=== PATIENT | female | born 1945 | race Caucasian/White ===

== ENCOUNTER 2017-04-14 08:00 | Outpatient (CLI) | payer MEDICARE, OTHER ==
[2017-04-14] MEDS ORDERED: Gadobenate Dimeglumine 529 MG/1 ML (20ML VIAL) ONE (12:23)
== END 2017-04-14 08:01 | disposition home or self-care (01) ==
LOC: BICMRI 08:00
DX: R10.32 Left lower quadrant pain (principal); K57.30 Diverticulosis of large intestine without perforation or abscess without bleeding; M25.78 Osteophyte, vertebrae
CPT/HCPCS: 72197; A9579

== ENCOUNTER 2018-07-11 13:16 | Outpatient (CLI) | payer MEDICARE, OTHER ==
--- NOTE | 2018-07-11 13:42 | RAD ---
EXAM: XR Knee Lt 2 View PROVIDED CLINICAL HISTORY: Knee pain COMPARISON: None FINDINGS: Tricompartmental osteophyte formation with prominent medial femorotibial joint space loss. Knee joint capsular distention likely reflects effusion. No evidence for fracture or other acute osseous abnorm ality. IMPRESSION: Left knee degenerative change.
--- NOTE | 2018-07-11 13:59 | RAD ---
RIGHT KNEE 2 VIEWS: HISTORY: Knee pain, worse on the left side. FINDINGS AND IMPRESSION: Mild osteoarthrosis changes of the right knee. No fracture or dislocation or other acute process. POS: TPC
== END 2018-07-11 13:17 | disposition home or self-care (01) ==
LOC: BICRAD 13:16
PROVIDERS: ATTEND Anesthesiology
DX: M25.561 Pain in right knee (principal); M25.562 Pain in left knee; M17.0 Bilateral primary osteoarthritis of knee

== ENCOUNTER 2018-10-17 10:04 | Outpatient (CLI) | payer MEDICARE, OTHER ==
--- NOTE | 2018-10-17 12:03 | MRI ---
MR the lumbar spine without contrast INDICATION: Chronic low back pain with left lower extremity radiculopathy COMPARISON: MR the lumbar spine from prior radiology associates dated December 21, 2016 TECHNIQUE: Multiplanar multisequence MR images were obtained of lumbar spine without IV contrast. FINDINGS: Bone marrow: Bone marrow signal intensity appears within normal limits. Distal spinal cord and conus: Normal. The conus seen to terminate at L1. Visualized retroperitoneum and paraspinal soft tissues: There is postsurgical change of a left hemila minectomy at L5-S1 and bilateral laminectomies at L4-5. Grade 1 anterolisthesis of L3 on L4 and L4 on L5 is stable. Vertebral levels: L5-S1: There is a broad-based bulge with facet hypertrophy inducing mild right neural foraminal narro wing which is stable.. L4-5: There is a broad-based disc osteophyte complex and facet hypertrophy. There is a superimposed l eft paracentral, cephalad extending disc extrusion measuring 1.5 cm in its greatest craniocaudad dimension inducing moderate narrowing of the left subarticular lateral recess at L4 with potential fo r impingement of the traversing left L5 nerve root. The protrusion also induces moderate narrowing of the left L4-5 neural foramina with probable contact of the exiting left L4 nerve root. This is new from the prior exam. No right-sided neural foraminal narrowing is evident. No central canal narrowing is noted. L3-4: There is a broad-based disc osteophyte complex with facet hypertrophy inducing mild central can al narrowing with mild to moderate left neural foraminal narrowing L2-3: There is a broad-based disc bulge with a superimposed right paracentral protrusion causing mild central canal narrowing but no appreciable neural foraminal narrowing. L1-L2: There is a mild broad-based disc bulge with mild facet joint degenerative change but no apprec iable central canal or neural foraminal narrowing. T12-L1: No appreciable central canal or neuroforaminal narrowing. IMPRESSION: 1. New cephalad extending left-sided disc extrusion from L4-5 inducing moderate narrowing of the suba rticular left lateral recess with potential for impingement of the traversing left L5 nerve root. The protrusion does extend into the left L4-5 neural foramina with contact of the exiting left L4 ner ve root. 2. [id number] left neural foraminal narrowing at L3-4. 3. Mild right neural foraminal narrowing at L5-S1. 4. Mild central canal narrowing at L2-3
== END 2018-10-17 10:05 | disposition home or self-care (01) ==
LOC: SCSMRI 10:04
PROVIDERS: ATTEND Anesthesiology
DX: M51.16 Intervertebral disc disorders with radiculopathy, lumbar region (principal); M48.061 Spinal stenosis, lumbar region without neurogenic claudication; M48.07 Spinal stenosis, lumbosacral region
CPT/HCPCS: 72148

== ENCOUNTER 2018-11-21 06:38 | Day surgery (SDC) | payer MEDICARE, OTHER ==
[2018-11-20 16:05] VITALS: BMI 29.1
[2018-11-21] MEDS ORDERED: Fentanyl 100 MCG/2 ML VIAL ONE ×4 (06:55→10:27)
[2018-11-21] MEDS ORDERED: Famotidine/PF 20 mg/2ml Vial ONE (06:55)
[2018-11-21] MEDS ORDERED: ceFAZolin Sodium (SDC) 2 GM/100 ML BAG ONE ×2 (06:55→12:48)
[2018-11-21 07:22] LABS: Anion Gap 12 mmol/L (10-20); BUN (Urea Nitrogen) 22 mg/dL (9.8-20.1); Calc. Creatinine Clearance 78 mL/min (70-130); Calcium 10.1 mg/dL (7.8-10.44); Carbon Dioxide 28 mmol/L (23-31); Chloride 102 mmol/L (98-107); Estimated GFR-MDRD 55; Glucose 88 mg/dL (83-110); Potassium 4.1 mmol/L (3.5-5.1); Sodium 138 mmol/L (136-145)
[2018-11-21] MEDS ORDERED: Ondansetron PF 4 MG/2 ML Vial ONE (07:52)
[2018-11-21] MEDS ORDERED: Bupivacaine HCl 0.5%/Epinephrine 1:200,000/PF 30 ml Vial ONE (09:30)
--- NOTE | 2018-11-21 10:14 | OP ---
DATE OF PROCEDURE: 11/21/2018 MOTOR VEHICLE DISPATCHER: Yordan Chaidez PA-C INDICATION: Pain. DIAGNOSIS: Lumbar radiculopathy. PROCEDURES PERFORMED: Reoperation, left L4 decompression, left L4 facetectomy, left L4 diskectomy. ANESTHESIA: General. DESCRIPTION OF PROCEDURE: The patient was brought into the operating room and placed under general anesthesia. She was flipped from the supine to prone position on operating room table. A linear incision was planned over the L4-L5 segment. After prepping and draping and after an appropriate preoperative pause, the incision was created. The soft tissues were swept away from midline. We spent a significant amount of time dissecting through scar tissue and bone defect from her prior operation. The bony defect was extended laterally to encompass the medial half of facet joint at the L4-L5 segment. The exiting L4 and descending L5 nerve roots were identified. The superiorly migrated L4 disk fragment was noted within the lateral recesses up to the level of the exiting L4 pedicle. This was carefully decompressed. The wound was irrigated. Hemostasis was maintained throughout. The wound was then closed in anatomic layers and a pressure dressing was applied. There were no known procedural complications. Job ID: [id number]
== END 2018-11-21 13:25 | disposition home or self-care (01) ==
LOC: SDC 06:38
PROVIDERS: ATTEND Neurological Surgery
PROC: 0ST20ZZ Resection of Lumbar Vertebral Disc, Open Approach (ICD-10-PCS; principal; 2018-11-21)
DX: M54.16 Radiculopathy, lumbar region (principal); M51.26 Other intervertebral disc displacement, lumbar region; D64.9 Anemia, unspecified; Z88.5 Allergy status to narcotic agent
CPT/HCPCS: 36415; 76000; 80048; 93005; 93010; J0131; J0670; J0690; J2405; J3010; S0028

== ENCOUNTER 2019-12-19 10:30 | Inpatient (IN) | payer MEDICARE, OTHER ==
[2020-01-02 13:27] VITALS: BMI 29.2
[2020-01-07] MEDS ORDERED: Tranexamic Acid 1,000 MG/10 ML VIAL ONE (05:59)
[2020-01-07] MEDS ORDERED: Vancomycin 1.5 GRAM/300 ML BAG ONE (05:59)
[2020-01-07] MEDS ORDERED: Sodium Chloride 0.9% 100 ML ONE (06:00)
[2020-01-07] MEDS ORDERED: Fentanyl 100 MCG/2 ML VIAL ONE ×3 (06:33→10:29)
[2020-01-07] MEDS ORDERED: Midazolam HCl 2 mg/2 ml Vial ONE (06:33)
[2020-01-07] MEDS ORDERED: diphenhydrAMINE 25 MG CAP PO PRN (06:57)
[2020-01-07] MEDS ORDERED: Ondansetron PF 4 MG/2 ML Vial IVP PRN ×2 (06:57→07:45)
[2020-01-07] MEDS ORDERED: Acetaminophen 325 MG TAB PO PRN (06:57)
[2020-01-07] MEDS ORDERED: Zolpidem Tartrate 5 MG TAB PO PRN ×2 (06:57→07:45)
[2020-01-07] MEDS ORDERED: Promethazine HCl 25 MG/ML VIAL IM PRN ×2 (06:57→07:45)
[2020-01-07] MEDS ORDERED: Estrogens, Conjugated 30 GM TUBE VAG SCH ×2 (07:00→07:15)
[2020-01-07] MEDS ORDERED: ESTRADIOL ACETATE VG SCH (07:00)
[2020-01-07] MEDS ORDERED: ESTRADIOL ACETATE VAG SCH (07:30)
[2020-01-07] MEDS ORDERED: Fentanyl 100 MCG/2 ML VIAL IV PRN (07:35)
[2020-01-07] MEDS ORDERED: Ropivacaine HCl/PF 250 ML in Premix Bag 1 BAG NERVE BLCK SCH (07:45)
[2020-01-07] MEDS ORDERED: PROPOFOL 20 ML ONE (08:08)
[2020-01-07] MEDS ORDERED: Bupivacaine HCl 0.5%/Epinephrine 1:200,000/PF 30 ml Vial ONE ×2 (08:10→13:45)
[2020-01-07] MEDS ORDERED: GABAPENTIN 600 MG PO SCH (09:00)
[2020-01-07] MEDS ORDERED: Hydrochlorothiazide 25 MG TAB PO SCH (09:00)
[2020-01-07] MEDS ORDERED: Non-Formulary Item 1 EACH (Celecoxib [Celebrex] 200 MG Cap) PO SCH (09:00)
[2020-01-07] MEDS ORDERED: Amlodipine 5 MG TAB PO SCH (09:00)
[2020-01-07] MEDS ORDERED: Gabapentin 300 MG CAP PO SCH (09:00)
[2020-01-07] MEDS ORDERED: Finasteride 5 MG TAB PO SCH (09:00)
[2020-01-07] MEDS ORDERED: Non-Formulary Item 1 EACH (Omeprazole [Omeprazole] 20 MG Capsule.Dr) PO SCH (09:00)
[2020-01-07] MEDS ORDERED: QUINAPRIL HCL 40 MG PO SCH (09:00)
[2020-01-07] MEDS ORDERED: DOXYCYCLINE HYCLATE 20 MG PO SCH ×2 (09:00)
--- NOTE | 2020-01-07 09:24 | RAD ---
LEFT KNEE: Date: 01/07/2020 HISTORY: Postop follow-up. FINDINGS/IMPRESSION: Left knee prosthesis has been placed. Postoperative changes are noted. Components appear in adequate position and alignment. POS: AGW
[2020-01-07] MEDS: Sodium Chloride 0.9% 1,000 ML IV SCH ×2 (12:20→17:52)
[2020-01-07] MEDS: Amlodipine 5 MG TAB PO SCH (12:26)
[2020-01-07] MEDS: Ketorolac Tromethamine 30 MG/ML VIAL IVP SCH ×4 (12:29→21:42)
[2020-01-07] MEDS: Baclofen 10 MG TAB PO SCH ×3 (13:44→21:41)
[2020-01-07] MEDS: Aspirin 81 mg Enteric Coated Tablet PO SCH ×2 (13:44→21:38)
[2020-01-07] MEDS ORDERED: Rocuronium Bromide 10 MG/ML (10ML VIAL) ONE (13:45)
[2020-01-07] MEDS: CeleCOXIB 100 MG CAP PO SCH ×2 (13:45→21:40)
[2020-01-07] MEDS ORDERED: Ropivacaine 0.2% HCl/PF (40 MG/20 ML VIAL) ONE (13:45)
[2020-01-07] MEDS ORDERED: PROPOFOL 200 MG/20 ML VIAL ONE (13:45)
[2020-01-07] MEDS ORDERED: Ondansetron PF 4 MG/2 ML Vial ONE (13:45)
[2020-01-07] MEDS ORDERED: Dexamethasone 20 MG/5 ML VIAL ONE (13:45)
[2020-01-07] MEDS ORDERED: Ketorolac Tromethamine 30 MG/ML VIAL ONE (13:45)
[2020-01-07] MEDS: Ferrous Gluconate 324 MG TAB PO SCH ×2 (13:45→21:37)
[2020-01-07] MEDS: Multivitamin W/ Minerals 1 TAB PO SCH (13:46)
[2020-01-07] MEDS: Senokot S 8.6-50 MG TAB PO SCH ×2 (13:46→21:38)
[2020-01-07] MEDS: CEFAZOLIN 2 GM in Premix Bag 1 BAG IVPB SCH ×2 (14:02→21:46)
[2020-01-07] MEDS: Acetaminophen 500 MG TAB PO SCH ×3 (14:02→21:38)
[2020-01-07] MEDS: Lisinopril 20 MG TAB PO SCH (14:11)
[2020-01-07] MEDS: Hydrochlorothiazide 25 MG TAB PO SCH (14:16)
[2020-01-07] MEDS ORDERED: Nitrofurantoin Monohyd/M-Cryst 100 MG CAP PO SCH (21:00)
[2020-01-07] MEDS: Gabapentin 300 MG CAP PO SCH (21:37)
[2020-01-07] MEDS: Nitrofurantoin Monohyd/M-Cryst 100 MG CAP PO SCH (21:39)
[2020-01-08] MEDS: Ketorolac Tromethamine 30 MG/ML VIAL IVP SCH ×5 (00:45→22:16)
[2020-01-08] MEDS: Sodium Chloride 0.9% 1,000 ML IV SCH ×2 (04:05→17:35)
[2020-01-08 05:16] LABS: Hemoglobin 11.9 g/dL (12.0-16.0); Mean Corpuscular HGB CONC 32.7 g/dL (32.0-36.0); Mean Corpuscular Hemoglobin 31.2 pg (27.0-31.0); Mean Corpuscular Volume 95.3 fL (78.0-98.0); Mean Platelet Volume 8.9 fL (7.4-10.4); Platelet Count 251 thou/uL (130-400); RBC Distribution Width 12.3 % (11.5-14.5); White Blood Cell (WBC) Count 15.8 thou/uL (4.8-10.8)
--- NOTE | 2020-01-08 05:31 | OP ---
DATE OF PROCEDURE: 01/07/2020 PREOPERATIVE DIAGNOSIS: Degenerative joint disease, left knee. POSTOPERATIVE DIAGNOSIS: Degenerative joint disease, left knee. PROCEDURE PERFORMED: Left total knee arthroplasty using [place] Triathlon 5 femur, 5 tibia, 9 mm CS X3 polyethylene, and an A32 patella. PRINCIPAL TECHNICAL WRITER: Macy. The surgical physician assistant/co-surgeon was present through the entire procedure and was responsible for providing exposure, tissue retraction and any necessary limb or tissue manipulation required to obtain necessary reduction or hardware placement. The surgical physician assistant/co-surgeon also provided bleeding control, tissue closure, and suturing in conjunction with the primary surgeon. BLOOD LOSS: Minimal. SPECIMEN: None. DRAIN: None. COMPLICATION: None. TOURNIQUET TIME: 47 minutes. PROCEDURE IN DETAIL: After informed consent was obtained in the preoperative holding area, the patient was taken to the operative suite where general anesthesia was induced. Once adequate level of general anesthesia was obtained, the patient was positioned and a well-padded tourniquet was placed around the left proximal thigh. The left lower extremity was then prepped and draped in the usual sterile fashion. Prior to exsanguination, a time-out was called and all members of the surgical team agreed upon site, surgeon, and patient. The extremity was then exsanguinated and the tourniquet was raised. A midline longitudinal incision was then made directly over the patella extending 2 fingerbreadths above the superior pole of the patella and 2 fingerbreadths inferior to the inferior patellar pole of the patella. Deeper subcutaneous layers were dissected sharply and local bleeding was controlled with Bovie electrocautery. A quad tendon longitudinal split was then made sharply and a median parapatellar arthrotomy was carried out both sharp and with Bovie electrocautery, carried down to 1 fingerbreadth medial to the tibial tubercle. The knee was then placed into flexion and the patella was everted nicely, and a copious fat pad ectomy was performed allowing for greater exposure of the tibia. The computer-assisted distal femoral fiducial was then placed and pinned firmly, and the distal femoral cutting guide was pinned firmly into place. The oscillating saw was then used to remove the appropriate amount of bone. The 4-in-1 cutting block was then placed on the distal femur and the oscillating saw was used to remove the appropriate amount of bone off the anterior, posterior, and chamfer cuts. After completion of bone cuts, the anterior cruciate ligament was resected sharply and the posterior cruciate ligament retractor was placed and the tibia was subluxed for better exposure. Partial meniscectomies were carried out, and the tibial computer-assisted fiducial was pinned, and the cutting guide was placed. Oscillating saw was then used to remove the bone, with Hohmann retractors used to take care and protect the collateral ligaments. After the tibial resection was performed, a laminar trim master operator was placed in between the freshened bone cuts. The knee placed at 90 degrees and further bilateral meniscectomies were carried out, and the curved osteotome and curettage were used to remove any excess bone spurs in the posterior compartment. The trial femoral component, tibial baseplate were placed with the appropriate polyethylene trial insert with an appropriate polyethylene spacer and patellar button. The knee was taken through full range of motion with flexion and extension from 0 to 90 degrees and patellar broach squarely in the trochlea without any squinting or subluxation noted. The knee was also stable to varus and valgus stressing at 0, 15, 45, and 90 degrees of flexion. The drawer was negative. All trial components were then removed and the keel punch was used to provide the appropriate defect in the tibia with a mallet. The freshened bone cuts were copiously irrigated with pulsatile lavage of about 1.5 L to remove all excess debris. The freshened bone cuts were then dried with suction and lap sponge. The knee was placed in flexion and retractors were placed to provide access to all bone cuts. Tobramycin-impregnated methyl methacrylate cement was then placed on the freshened bone cuts and implants which were malleted firmly into place. Curettage and [place] elevators were used to remove any excess bone cement. The knee was placed into full extension and the patellar button was placed under compression, and the cement was allowed to cure. Once completed, the components were again taken through full range of motion and copious irrigation of the knee was carried out with another liter of normal saline. All components were inspected fully with full range of motion and varus and valgus stressing. There was no laxity noted and full extension was observed clinically. Primary closure was accomplished with #2 interrupted Vicryl stitch of the arthrotomy defect. This was oversewn with a #2 running Quill barbed stitch. The gravitational platelet system was then injected into the arthrotomy prior to closure. The subcutaneous layer was then closed with a running 0 barbed Monocryl stitch and skin closure accomplished with a running subcuticular 3-0 Monocryl barbed Quill stitch and augmented with cement on the skin. Tourniquet was lowered. Good spontaneous return of distal pulses was noted clinically and a sterile dressing was applied to the incision. The procedure was terminated without any complications. The patient was awakened in the operative suite and the was removed, and the patient was taken to the recovery room in stable condition. Job ID: [id number]
[2020-01-08] MEDS: Senokot S 8.6-50 MG TAB PO SCH ×2 (08:47→22:38)
[2020-01-08] MEDS: Acetaminophen 500 MG TAB PO SCH ×4 (08:48→22:16)
[2020-01-08] MEDS: Ferrous Gluconate 324 MG TAB PO SCH ×2 (08:48→22:15)
[2020-01-08] MEDS: Lisinopril 20 MG TAB PO SCH (08:49)
[2020-01-08] MEDS: Gabapentin 300 MG CAP PO SCH ×3 (08:49→22:15)
[2020-01-08] MEDS: Aspirin 81 mg Enteric Coated Tablet PO SCH ×2 (08:49→22:14)
[2020-01-08] MEDS: Multivitamin W/ Minerals 1 TAB PO SCH (08:49)
[2020-01-08] MEDS: Baclofen 10 MG TAB PO SCH ×3 (08:50→22:15)
[2020-01-08] MEDS: Hydrochlorothiazide 25 MG TAB PO SCH (08:50)
[2020-01-08] MEDS: Amlodipine 5 MG TAB PO SCH (08:50)
[2020-01-08] MEDS: CeleCOXIB 100 MG CAP PO SCH (09:03)
[2020-01-08] MEDS: Finasteride 5 MG TAB PO SCH (15:15)
[2020-01-08] MEDS: traMADol HCl 50 MG TAB PO PRN (22:14)
[2020-01-08] MEDS: Nitrofurantoin Monohyd/M-Cryst 100 MG CAP PO SCH (22:16)
[2020-01-09] MEDS: Ketorolac Tromethamine 30 MG/ML VIAL IVP SCH ×2 (04:03→09:02)
[2020-01-09] MEDS: traMADol HCl 50 MG TAB PO PRN ×3 (04:03→22:05)
[2020-01-09] MEDS: Sodium Chloride 0.9% 1,000 ML IV SCH ×3 (06:19→18:43)
[2020-01-09] MEDS: Hydrochlorothiazide 25 MG TAB PO SCH (09:03)
[2020-01-09] MEDS: Ferrous Gluconate 324 MG TAB PO SCH (09:03)
[2020-01-09] MEDS: Senokot S 8.6-50 MG TAB PO SCH (09:03)
[2020-01-09] MEDS: Amlodipine 5 MG TAB PO SCH (09:03)
[2020-01-09] MEDS: Multivitamin W/ Minerals 1 TAB PO SCH (09:04)
[2020-01-09] MEDS: Acetaminophen 500 MG TAB PO SCH ×4 (09:04→21:42)
[2020-01-09] MEDS: Baclofen 10 MG TAB PO SCH ×3 (09:04→22:02)
[2020-01-09] MEDS: Aspirin 81 mg Enteric Coated Tablet PO SCH ×2 (09:04→22:00)
[2020-01-09] MEDS: Gabapentin 300 MG CAP PO SCH ×3 (09:04→22:02)
[2020-01-09] MEDS: Lisinopril 20 MG TAB PO SCH (09:05)
[2020-01-09] MEDS: Finasteride 5 MG TAB PO SCH (13:42)
[2020-01-09] MEDS ORDERED: Acetaminophen 325 MG TAB PO PRN (17:00)
[2020-01-09] MEDS: Nitrofurantoin Monohyd/M-Cryst 100 MG CAP PO SCH (22:01)
[2020-01-09] MEDS: CeleCOXIB 100 MG CAP PO SCH (22:01)
[2020-01-10] MEDS: Ferrous Gluconate 324 MG TAB PO SCH ×3 (02:31→11:34)
[2020-01-10] MEDS: Senokot S 8.6-50 MG TAB PO SCH ×2 (02:32→11:35)
[2020-01-10] MEDS: traMADol HCl 50 MG TAB PO PRN ×2 (05:46→12:27)
[2020-01-10] MEDS: Sodium Chloride 0.9% 1,000 ML IV SCH (08:07)
[2020-01-10] MEDS: Hydrochlorothiazide 25 MG TAB PO SCH (09:05)
[2020-01-10] MEDS: Lisinopril 20 MG TAB PO SCH (09:05)
[2020-01-10] MEDS: Gabapentin 300 MG CAP PO SCH (09:07)
[2020-01-10] MEDS: CeleCOXIB 100 MG CAP PO SCH (09:08)
[2020-01-10] MEDS: Amlodipine 5 MG TAB PO SCH (09:08)
[2020-01-10] MEDS: Baclofen 10 MG TAB PO SCH (09:08)
[2020-01-10] MEDS: Aspirin 81 mg Enteric Coated Tablet PO SCH ×2 (09:09→11:34)
[2020-01-10] MEDS: Multivitamin W/ Minerals 1 TAB PO SCH (09:15)
[2020-01-10] MEDS: Acetaminophen 500 MG TAB PO SCH ×2 (09:21→13:25)
[2020-01-10] MEDS ORDERED: Acetaminophen 500 MG TAB PO SCH (09:30)
[2020-01-10 12:05] VITALS: BP 146/68; TEMP 98.1
[2020-01-10] MEDS: Finasteride 5 MG TAB PO SCH (13:21)
--- NOTE | 2020-01-13 13:53 | DIS ---
DATE OF ADMISSION: 01/07/2020 DATE OF DISCHARGE: 01/10/2020 PREOPERATIVE DIAGNOSIS: Degenerative joint disease, left knee. POSTOPERATIVE DIAGNOSIS: Degenerative joint disease, left knee. PROCEDURE PERFORMED: Left total knee arthroplasty using [place] Triathlon components. BRIEF HOSPITAL COURSE: This is a 74-year-old female, who was indicated for the above-mentioned procedure. She did well in the operative suite. Postoperatively, she was admitted to [facility] 3 postoperative floor. Here, she received postoperative antibiotics and analgesics were controlled by the anesthesiologist group. She worked with physical and occupational therapist. She did well postoperatively. On postop day #2, she felt well and was ambulating well. She was discharged home at that time. DISCHARGE DISPOSITION: Home. DISCHARGE CONDITION: Stable. DISCHARGE INSTRUCTIONS: The patient will follow up Dr. Angelo as scheduled. She will ambulate as tolerated. She will keep her surgical site clean, dry, and intact. DISCHARGE MEDICATIONS: See MAR. Job ID: [id number]
== END 2020-01-10 13:45 | disposition home or self-care (01) | DRG 470 ==
LOC: SDC 01-07 05:41 → SURG A 01-07 05:44 → EDSTATUS 01-07 10:30 → SJJU 01-07 10:46
PROVIDERS: ADMIT Orthopaedic Surgery; ATTEND Orthopaedic Surgery
PROC: 0SRD0J9 Replacement of Left Knee Joint with Synthetic Substitute, Cemented, Open Approach (ICD-10-PCS; principal; 2020-01-07)
DX: M17.12 Unilateral primary osteoarthritis, left knee (principal); I10 Essential (primary) hypertension; K21.9 Gastro-esophageal reflux disease without esophagitis; Z79.899 Other long term (current) drug therapy
CPT/HCPCS: 36415; 85027; C1713; C1776; J0690; J1100; J1885; J2250; J2405; J2704; J2795; J3010; J3370; J3490

== ENCOUNTER 2020-01-02 07:32 | Outpatient (CLI) | payer MEDICARE, OTHER ==
[2020-01-02 14:16] LABS: Anion Gap 14 mmol/L (10-20); BUN (Urea Nitrogen) 21 mg/dL (9.8-20.1); Calc. Creatinine Clearance 0 mL/min (70-130); Calcium 9.6 mg/dL (7.8-10.44); Carbon Dioxide 25 mmol/L (23-31); Chloride 103 mmol/L (98-107); Estimated GFR-MDRD 52; Glucose 96 mg/dL (83-110); Potassium 4.4 mmol/L (3.5-5.1); Sodium 138 mmol/L (136-145)
[2020-01-02 14:35] LABS: INR-International Normal Ratio 0.9; Prothrombin Time 12.9 sec (12.0-14.7)
[2020-01-02 14:45] LABS: Band 6 % (5-11); Eosinophils 3 % (0-10); Hemoglobin 13.9 g/dL (12.0-16.0); Lymphocytes 16 % (21-51); MDiff Complete? YES; Mean Corpuscular HGB CONC 32.3 g/dL (32.0-36.0); Mean Corpuscular Hemoglobin 31.2 pg (27.0-31.0); Mean Corpuscular Volume 96.7 fL (78.0-98.0); Mean Platelet Volume 10.3 fL (7.4-10.4); Monocytes 7 % (0-10); Neutrophil 66 % (42-75); Platelet Count 156 thou/uL (130-400); Platelet Morphology Comment Appears Adequate; RBC Distribution Width 12.5 % (11.5-14.5); RBC Morphology Normal; Reactive Lymphocytes 1 % (0-10); Red Blood Cell (RBC) Count 4.47 mill/uL (4.20-5.40); White Blood Cell (WBC) Count 7.4 thou/uL (4.8-10.8)
[2020-01-02 15:11] LABS: Bacteria/HPF None Seen HPF (None Seen); Bilirubin Negative (Negative); Blood, Urine Negative (Negative); Clarity Clear (Clear); Glucose, Urine (Dipstick) Normal (Negative); Ketone, Urine Negative (Negative); Leukocyte Negative Leu/uL (Negative); Nitrite Negative (Negative); Protein, Urine (Dipstick) Negative (Neg-Trace); RBC/HPF 0-3 HPF (0-3); Specific Gravity, Urine 1.014 (1.002-1.036); Squamous Epithelial 0-3 HPF (0-3); Urobilinogen Normal mg/dL (Less than 2); WBC/HPF 0-3 HPF (0-3); pH, Urine 5.5 (5.0-9.0)
[2020-01-03 11:12] LABS: SARS-CoV-2 MS2 Positive; SARS-CoV-2 N Gene Negative; SARS-CoV-2 S Gene Negative; SARS-CoV-2 by NAA Not Detected (NotDetected); SARS-CoV-2 orf1ab Negative
== END 2020-01-02 07:33 | disposition home or self-care (01) ==
LOC: LABBT 07:32
PROVIDERS: ATTEND Orthopaedic Surgery
DX: Z01.818 Encounter for other preprocedural examination (principal); Z20.828 Contact with and (suspected) exposure to other viral communicable diseases; M17.12 Unilateral primary osteoarthritis, left knee
CPT/HCPCS: 80048; 81001; 85025; 85610; 87081; 93005; U0003; 87635; 93010